=== PATIENT | female | born 1960 | race Caucasian/White ===

== ENCOUNTER 2016-11-02 10:25 | Emergency (ER) | payer OTHER ==
[~2016-11-02] VITALS: Ht 167.6 cm; Wt 58.0 kg
[2016-11-02 11:11] VITALS: BP 117/81
== END 2016-11-02 11:17 | disposition home or self-care (01) ==
LOC: ED 10:35
DX: G89.18 Other acute postprocedural pain (principal); K06.8 Other specified disorders of gingiva and edentulous alveolar ridge; F17.210 Nicotine dependence, cigarettes, uncomplicated; Z98.818 Other dental procedure status
CPT/HCPCS: 99282; 99283